=== PATIENT | female | born 1985 | race Caucasian/White ===

== ENCOUNTER 2017-02-10 21:17 | Emergency (ER) | payer OTHER ==
--- NOTE | 2017-02-10 21:47 | ED ---
General Adult HPI - General Chief complaint: Chest Pain Stated complaint: rapid heart rate/chest pain Time Seen by Provider: 02/10/17 21:39 Source: patient, family, RN notes reviewed Mode of arrival: ambulatory Limitations: no limitations - History of Present Illness Initial comments: Patient 31-year-old female who presents emergency room today with a chief complaint of increased palpitations and chest pain. She does admit that she's had these symptoms on and off for the last several months. She states chest pain is new just over the last few weeks. She states not there all the time with the palpitations. She states she was concerned as the pain has lasted the last hour and a half. She states she usually does not last that long. She describes it as sharp. States located at the anterior chest wall. She denies any other complaints. Patient denies any recent fever, chills, shortness of breath, back pain, abdominal pain, nausea or vomiting, numbness or tingling, dysuria or hematuria, constipation or diarrhea, headaches or visual changes, or any other complaints. - Related Data Home Medications Medication Instructions Recorded Confirmed LORazepam [Ativan] 1 mg PO BID PRN 07/15/14 02/10/17 Citalopram Hydrobromide [CeleXA] 20 mg PO DAILY 02/10/17 02/10/17 Levothyroxine Sodium [Synthroid] 200 mcg PO DAILY 02/10/17 02/10/17 lamoTRIgine [LaMICtal] 25 mg PO HS 02/10/17 02/10/17 Allergies Allergy/AdvReac Type Severity Reaction Status Date / Time No Known Allergies Allergy Verified 02/10/17 21:49 Review of Systems ROS Statement: Those systems with pertinent positive or pertinent negative responses have been documented in the HPI. ROS Other: All systems not noted in ROS Statement are negative. Past Medical History Past Medical History: Thyroid Disorder Additional Past Medical History / Comment(s): headaches History of Any Multi-Drug Resistant Organisms: None Reported Past Surgical History: Cholecystectomy Past Psychological History: Anxiety, Depression Smoking Status: Never smoker Past Alcohol Use History: None Reported Past Drug Use History: None Reported General Exam - General Exam Comments Initial Comments: General: The patient is awake and alert, in no distress, and does not appear acutely ill. Eye: Pupils are equal, round and reactive to light, extra-ocular movements are intact. No nystagmus. There is normal conjunctiva bilaterally. No signs of icterus. Ears, nose, mouth and throat: There are moist mucous membranes and no oral lesions. Neck: The neck is supple, there is no tenderness or JVD. Cardiovascular: There is a regular rate and rhythm. No murmur, rub or gallop is appreciated. Respiratory: Lungs are clear to auscultation, respirations are non-labored, breath sounds are equal. No wheezes, stridor, rales, or rhonchi. Gastrointestinal: Soft, non-distended, non-tender abdomen without masses or organomegaly noted. There is no rebound or guarding present. No CVA tenderness. Bowel sounds are unremarkable. Musculoskeletal: Normal ROM, no tenderness. Strength 5/5. Sensation intact. Pulses equal bilaterally 2+. Neurological: A&O x 3. CN II-XII intact, There are no obvious motor or sensory deficits. Coordination appears grossly intact. Speech is normal. Skin: Skin is warm and dry and no rashes or lesions are noted. Psychiatric: Cooperative, appropriate mood & affect, normal judgment. Limitations: no limitations Course Vital Signs 02/10/17 02/10/17 02/10/17 21:28 21:53 23:00 Temperature 98.2 F 99.1 F Pulse Rate 71 66 65 Respiratory 20 18 18 Rate Blood Pressure 167/108 149/96 153/97 O2 Sat by Pulse 99 98 100 Oximetry - Reevaluation(s) Reevaluation #1: 02/10/17 22:36 Patient reexamined at this time. She does admit to some pleuritic type pain. D -dimer mildly elevated. CT of the chest will be performed. Patient states she is currently on her menstrual cycle and no chance of . Patient's cardiac still pending. EKG shows normal sinus rhythm. EKG Findings - EKG Comments: EKG Findings:: EKG performed at 2133: A 12-lead EKG was performed and interpreted by me as showing the following: Rate is 59, and rhythm is normal sinus. There are normal QRS complexes and normal R-wave progression. ST segments have no elevation or depression, and MT segments appear normal. Medical Decision Making - Medical Decision Making Case discussed in detail with attending physician Dr. Lindsey. Patient's CT of the chest negative for any evidence of PE. Does show groundglass appearance in the left upper lobe. Patient advised follow-up family doctor. At this time patient resting comfortably. EKG is normal. Cardiac enzymes negative. Patient has been worked up for this condition through the family doctor. Advised to follow-up family doctor tomorrow. Advised return if any symptoms increase or worsen. - Lab Data Result diagrams: 02/10/17 21:50 02/10/17 21:50 Lab Results 02/10/17 02/10/17 02/10/17 Range/Units 21:50 21:50 21:50 WBC 6.9 (3.8-10.6) k/uL RBC 4.76 (3.80-5.40) m/uL Hgb 15.3 (11.4-16.0) gm/dL Hct 42.9 (34.0-46.0) % MCV 90.1 (80.0-100.0) fL MCH 32.2 (25.0-35.0) pg MCHC 35.8 (31.0-37.0) g/dL RDW 12.5 (11.5-15.5) % Plt Count 197 (150-450) k/uL Neutrophils % 52 % Lymphocytes % 39 % Monocytes % 5 % Eosinophils % 1 % Basophils % 1 % Neutrophils # 3.6 (1.3-7.7) k/uL Lymphocytes # 2.7 (1.0-4.8) k/uL Monocytes # 0.3 (0-1.0) k/uL Eosinophils # 0.1 (0-0.7) k/uL Basophils # 0.1 (0-0.2) k/uL PT (9.0-12.0) sec INR (<1.1) APTT (22.0-30.0) sec D-Dimer (<0.60) mg/L FEU Sodium 140 (137-145) mmol/L Potassium 4.1 (3.5-5.1) mmol/L Chloride 104 (98-107) mmol/L Carbon Dioxide 30 (22-30) mmol/L Anion Gap 6 mmol/L BUN 13 (7-17) mg/dL Creatinine 0.72 (0.52-1.04) mg/dL Est GFR (MDRD) Af Amer >60 (>60 ml/min/1.73 sqM) Est GFR (MDRD) Non-Af >60 (>60 ml/min/1.73 sqM) Glucose 88 (74-99) mg/dL Calcium 9.6 (8.4-10.2) mg/dL Magnesium 2.0 (1.6-2.3) mg/dL Total Bilirubin 0.4 (0.2-1.3) mg/dL AST 24 (14-36) U/L ALT 27 (9-52) U/L Alkaline Phosphatase 53 (38-126) U/L Total Creatine Kinase 121 (30-135) U/L CK-MB (CK-2) 0.7 (0.0-2.4) ng/mL CK-MB (CK-2) Rel Index 0.6 Troponin I <0.012 (0.000-0.034) ng/mL Total Protein 7.5 (6.3-8.2) g/dL Albumin 4.3 (3.5-5.0) g/dL 02/10/17 Range/Units 21:50 WBC (3.8-10.6) k/uL RBC (3.80-5.40) m/uL Hgb (11.4-16.0) gm/dL Hct (34.0-46.0) % MCV (80.0-100.0) fL MCH (25.0-35.0) pg MCHC (31.0-37.0) g/dL RDW (11.5-15.5) % Plt Count (150-450) k/uL Neutrophils % % Lymphocytes % % Monocytes % % Eosinophils % % Basophils % % Neutrophils # (1.3-7.7) k/uL Lymphocytes # (1.0-4.8) k/uL Monocytes # (0-1.0) k/uL Eosinophils # (0-0.7) k/uL Basophils # (0-0.2) k/uL PT 9.6 (9.0-12.0) sec INR 0.9 (<1.1) APTT 22.6 (22.0-30.0) sec D-Dimer 0.65 H (<0.60) mg/L FEU Sodium (137-145) mmol/L Potassium (3.5-5.1) mmol/L Chloride (98-107) mmol/L Carbon Dioxide (22-30) mmol/L Anion Gap mmol/L BUN (7-17) mg/dL Creatinine (0.52-1.04) mg/dL Est GFR (MDRD) Af Amer (>60 ml/min/1.73 sqM) Est GFR (MDRD) Non-Af (>60 ml/min/1.73 sqM) Glucose (74-99) mg/dL Calcium (8.4-10.2) mg/dL Magnesium (1.6-2.3) mg/dL Total Bilirubin (0.2-1.3) mg/dL AST (14-36) U/L ALT (9-52) U/L Alkaline Phosphatase (38-126) U/L Total Creatine Kinase (30-135) U/L CK-MB (CK-2) (0.0-2.4) ng/mL CK-MB (CK-2) Rel Index Troponin I (0.000-0.034) ng/mL Total Protein (6.3-8.2) g/dL Albumin (3.5-5.0) g/dL Disposition Clinical Impression: Palpitation Disposition: HOME SELF-CARE Condition: Good Instructions: Palpitations (ED) Additional Instructions: Please use medication as discussed. Please follow-up with family doctor in the next 1-2 days. Please return to emergency room if the symptoms increase or worsen or for any other concerns. Time of Disposition: 23:47
[2017-02-10 21:53] VITALS: RESP 18
[2017-02-10 22:00] LABS: Basophils # (A) 0.1 k/uL (0-0.2); Basophils % (A) 1 %; CH 32.9; CHCM 36.6; Eosinophils # (A) 0.1 k/uL (0-0.7); Eosinophils % (A) 1 %; HCT 42.9 % (34.0-46.0); HDW 2.76; HGB 15.3 gm/dL (11.4-16.0); Luc # (Auto) 0.19; Luc % (Auto) 3; Lymphocytes # (A) 2.7 k/uL (1.0-4.8); Lymphocytes % (A) 39 %; MCH 32.2 pg (25.0-35.0); MCHC 35.8 g/dL (31.0-37.0); MCV 90.1 fL (80.0-100.0); Mean Platelet Volume 6.3; Monocytes # (A) 0.3 k/uL (0-1.0); Monocytes % (A) 5 %; Neutrophils # (A) 3.6 k/uL (1.3-7.7); Neutrophils % (A) 52 %; RBC 4.76 m/uL (3.80-5.40); RDW 12.5 % (11.5-15.5); WBC 6.9 k/uL (3.8-10.6); WBC (Perox) 7.22
[2017-02-10 22:08] LABS: ALT 27 U/L (9-52); AST 24 U/L (14-36); Alkaline Phosphatase 53 U/L (38-126); Anion Gap 6 mmol/L; Blood Urea Nitrogen 13 mg/dL (7-17); Calcium 9.6 mg/dL (8.4-10.2); Carbon Dioxide 30 mmol/L (22-30); Chloride 104 mmol/L (98-107); Glucose 88 mg/dL (74-99); Non-African American GFR(MDRD) >60 (>60 ml/min/1.73 sqM); Potassium 4.1 mmol/L (3.5-5.1); Sodium 140 mmol/L (137-145); Total Bilirubin 0.4 mg/dL (0.2-1.3); Total Protein 7.5 g/dL (6.3-8.2)
[2017-02-10 22:09] LABS: INR 0.9 (<1.1); Partial Thromboplastin Time 22.6 sec (22.0-30.0); Prothrombin Time 9.6 sec (9.0-12.0)
[2017-02-10 22:22] LABS: Creatine Kinase 121 U/L (30-135)
--- NOTE | 2017-02-10 22:25 | XR ---
EXAM: XR Chest, 2 Views CLINICAL HISTORY: Reason: Chest Pain TECHNIQUE: Frontal and lateral views of the chest. COMPARISON: No relevant prior studies available. FINDINGS: Lungs: Mildly prominent perihilar lung markings. No consolidation. Pleural space: Unremarkable. No pneumothorax. Heart: Unremarkable. Mediastinum: Unremarkable. Bones/joints: Unremarkable. IMPRESSION: Mildly prominent perihilar lung markings. No consolidation.
[2017-02-10] MEDS ORDERED: RX INFO: IV CONTRAST WAS GIVEN 1 EACH MISC MISCELLANE PRN (22:29)
[2017-02-10 22:35] LABS: Creatine Kinase MB 0.7 ng/mL (0.0-2.4); Troponin I <0.012 ng/mL (0.000-0.034)
--- NOTE | 2017-02-10 23:29 | CT ---
EXAM: CT Angiography Chest With Intravenous Contrast CLINICAL HISTORY: Reason: pain TECHNIQUE: Axial computed tomographic angiography images of the chest with intravenous contrast using pulmonary embolism protocol. CTDI is 3.0, 28. 6, and 7.1 mGy and DLP is 275.7 mGy-cm This CT exam was performed using one or more of the following dose reduction techniques: automated exposure control, adjustment of the mA and/or kV according to patient size, and/or use of iterative reconstruction technique. MIP reconstructed images were created and reviewed. COMPARISON: No relevant prior studies available. FINDINGS: Pulmonary arteries: No evidence of PE. Peripheral vessels not well visualized. Aorta: No aortic aneurysm or dissection. Lungs: Mild peribronchial thickening. No consolidation. Small 3 mm groundglass pulmonary nodule in the left upper lobe (image [id number]). Pleural space: Unremarkable. No significant effusion. No pneumothorax. Heart: Unremarkable. Bones/joints: No acute fracture. Soft tissues: Unremarkable. Lymph nodes: Small mediastinal and hilar lymph nodes. Gallbladder and bile ducts: Prior cholecystectomy. IMPRESSION: 1. No evidence of PE. 2. Mild peribronchial thickening. No consolidation. Small 3 mm groundglass nodule in the left upper lobe. Compare to prior studies if available, followup per Fleischner society recommendations if indicated.
[2017-02-10] MEDS ORDERED: KETOROLAC 30 MG/ML 1 ML VIAL IVP STA (23:37)
[2017-02-10 23:47] VITALS: BP 138/93; PULSE 68; TEMP 98.6
== END 2017-02-10 23:53 | disposition home or self-care (01) ==
LOC: EC 21:17
DX: R00.2 Palpitations (principal); R07.89 Other chest pain; R91.8 Other nonspecific abnormal finding of lung field; E07.9 Disorder of thyroid, unspecified; F32.9 Major depressive disorder, single episode, unspecified; Z79.899 Other long term (current) drug therapy
CPT/HCPCS: 36415; 93005; 85379; 80053; 82550; 82553; 83735; 84484; 85025; 85610; 85730; 71020; 71275; 99285; 96374; Q9967; J1885

== ENCOUNTER 2018-01-28 05:48 | Inpatient (IN) | payer OTHER ==
[2018-01-28] MEDS ORDERED: LIDOCAINE 1% (PF) 10 MG/ML (30 ML SDV) SQ PRN (06:19)
[2018-01-28] MEDS ORDERED: METHYLERGONOVINE 0.2 MG/ML 1 ML AMP IM PRN (06:19)
[2018-01-28] MEDS ORDERED: OXYTOCIN 10 UNIT/ML 1 ML VIAL IM PRN (06:19)
[2018-01-28] MEDS ORDERED: TERBUTALINE 1 MG/ML VIAL SQ PRN (06:19)
[2018-01-28] MEDS ORDERED: CARBOPROST TROMETHAMINE 250 MCG/ML 1 ML AMP IM PRN (06:19)
[2018-01-28 06:27] LABS: Basophils % (A) 0 %; Eosinophils # (A) 0.1 k/uL (0-0.7); Eosinophils % (A) 1 %; HCT 38.5 % (34.0-46.0); HGB 14.5 gm/dL (11.4-16.0); Hyperchromasia Marked; Lymphocytes # (A) 1.9 k/uL (1.0-4.8); Lymphocytes % (A) 27 %; MCH 32.4 pg (25.0-35.0); MCHC 37.7 g/dL (31.0-37.0); MCV 85.8 fL (80.0-100.0); Mean Platelet Volume 7.5; Monocytes # (A) 0.3 k/uL (0-1.0); Monocytes % (A) 4 %; Neutrophils # (A) 4.7 k/uL (1.3-7.7); Neutrophils % (A) 65 %; Platelet Count 171 k/uL (150-450); Poikilocytosis Slight; RBC 4.49 m/uL (3.80-5.40); RDW 13.9 % (11.5-15.5); WBC 7.2 k/uL (3.8-10.6)
[2018-01-28 06:28] VITALS: BMI 33.3
[2018-01-28 06:38] LABS: ALT 20 U/L (9-52); AST 19 U/L (14-36); Blood Urea Nitrogen 6 mg/dL (7-17); LDH 535 U/L (313-618); Uric Acid 5.4 mg/dL (3.7-7.4)
[2018-01-28] MEDS: LACTATED RINGERS 1,000 ML IV SCH ×3 (06:38→07:25)
[2018-01-28] MEDS ORDERED: SODIUM CHLORIDE 0.9% 100 ML BAG ONE (06:52)
[2018-01-28] MEDS ORDERED: fentaNYL (PF) 50 MCG/ML 5 ML AMP ONE (06:52)
[2018-01-28] MEDS ORDERED: BUPIVACAINE (PF) 0.25% 30 ML VIAL ONE (06:52)
--- NOTE | 2018-01-28 06:53 | P.HPOB ---
History of Present Illness H&P Date: 01/28/18 Chief Complaint: Labor at 40-0/7 weeks This is a 32-year-old 6 para 3023 woman with an estimated due date of based on LMP consistent with second trimester ultrasound who presents at 40-0/7 weeks gestation in spontaneous active labor. She reports onset of regular painful contractions at approximately 4:15 AM. She denies vaginal bleeding or leakage of fluids. She is known Rh-. Past medical history is significant for hypothyroid, hypertension and anxiety bipolar disorder. Upon initial presentation to labor and delivery triage she is actively zain every 3 minutes and is visibly uncomfortable. Her cervix is 4+ centimeters dilated 50% effaced and posterior. heart tones are reassuring. She did have elevated blood pressures upon presentation but denied headaches, visual changes. Obstetric history: Normal spontaneous vaginal deliveries in 2010, 2008 and 2006. Spontaneous miscarriages in 2015 2009. No previous history of PIH or preeclampsia. Laboratory data: Group B strep negative, blood type AB-, antibody screen negative, rubella immune, VDRL nonreactive, hepatitis B surface antigen negative , HIV negative, gonorrhea and chlamydia cultures negative. Review of Systems All systems: negative Past Medical History Past Medical History: Hypertension, Thyroid Disorder Additional Past Medical History / Comment(s): headaches History of Any Multi-Drug Resistant Organisms: None Reported Past Surgical History: Cholecystectomy Past Anesthesia/Blood Transfusion Reactions: No Reported Reaction Past Psychological History: Anxiety, Bipolar, Depression Smoking Status: Never smoker Past Alcohol Use History: None Reported Past Drug Use History: None Reported - Past Family History Father History Unknown: Yes Family Medical History: Hypertension Medications and Allergies Home Medications Medication Instructions Recorded Confirmed Type Citalopram Hydrobromide [CeleXA] 40 mg PO DAILY 02/10/17 01/28/18 History Levothyroxine Sodium [Synthroid] 200 mcg PO DAILY 02/10/17 01/28/18 History lamoTRIgine [LaMICtal] 25 mg PO HS 02/10/17 01/28/18 History Allergies Allergy/AdvReac Type Severity Reaction Status Date / Time No Known Allergies Allergy Verified 01/28/18 06:17 Exam - Vital Signs Vital signs: Vital Signs Temp Pulse Resp BP 01/28/18 06:22 97.6 F 101 H 16 143/95 Intake and Output 01/27/18 01/27/1801/28/18 14:59 22:59 06:59 Other: Weight 99.337 kg Targeted physical exam is performed. This is an extremely uncomfortable and actively laboring female. On cervical exam she is 6 cm dilated, 50% effaced and the vertex is in the -3 station. Bulging membranes are palpable. Patient does not tolerate pelvic exam well. She is very active in the bed precluding other examination. heart tones are reassuring by external monitoring. She is zain every 2-4 minutes. Results Result Diagrams: 01/28/18 06:18 01/28/18 06:18 Abnormal Lab Results - Last 24 Hours (Table) 01/28/18 01/28/18 Range/Units 06:18 06:18 MCHC 37.7 H (31.0-37.0) g/dL BUN 6 L (7-17) mg/dL Assessment and Plan (1) 40 weeks gestation of Current Visit: Yes Status: Acute Code(s): Z3A.40 - 40 WEEKS GESTATION OF SNOMED Code(s): 87244453 (2) Spontaneous onset of labor Narrative/Plan: This is a 32-year-old 6 para 3 woman in advanced active labor. Epidural anesthetic is pending. Elevated blood pressures as described. Anticipate normal spontaneous vaginal delivery. Current Visit: Yes Status: Acute Code(s): ERI6431 - SNOMED Code(s): 95568542 (3) Rh negative, maternal Current Visit: Yes Status: Acute Code(s): O09.899 - SUPERVISION OF OTHER HIGH RISK PREGNANCIES, UNSP TRIMESTER; Z67.91 - UNSPECIFIED BLOOD TYPE, RH NEGATIVE SNOMED Code(s): 943486523 (4) Hypertension affecting Narrative/Plan: History of hypertension prior to . Preeclamptic labs negative. Blood pressure currently elevated however epidural anesthetic is pending. He did not want to give her an antihypertensive immediately prior to epidural placement for fear of significant hypotension. She will be treated with IV labetalol following her epidural if her pressures remain elevated. Current Visit: Yes Status: Acute Code(s): O16.9 - UNSPECIFIED MATERNAL HYPERTENSION, UNSPECIFIED TRIMESTER SNOMED Code(s): 915342779 (5) Hypothyroid Current Visit: Yes Status: Acute Code(s): E03.9 - HYPOTHYROIDISM, UNSPECIFIED SNOMED Code(s): 01295553 (6) Bipolar disorder Current Visit: Yes Status: Acute Code(s): F31.9 - BIPOLAR DISORDER, UNSPECIFIED SNOMED Code(s): 76308234
[2018-01-28] MEDS ORDERED: BUPIVACAINE (PF) 0.25% 25 ML, fentaNYL (PF) 200 MCG in SODIUM CHLORIDE 0.9% 71 ML EPIDURAL ONE (07:18)
[2018-01-28 08:55] LABS: Appearance,Urine Cloudy (Clear); Bilirubin,Urine Negative (Negative); Blood,Urine Negative (Negative); Color,Urine Yellow; Glucose,Urine (UA) Negative (Negative); Hyaline Casts,Urine 3 /lpf (0-2); Ketones,Urine Trace (Negative); Leukocyte Esterase,Urine Negative (Negative); Mucus,Urine Occasional /hpf; Nitrite,Urine Negative (Negative); Protein,Urine 1+ (Negative); RBC,Urine <1 /hpf (0-5); Specific Gravity,Urine 1.012 (1.001-1.035); Squamous Epithelial Cell,Urine <1 /hpf (0-4); WBC,Urine 2 /hpf (0-5)
[2018-01-28] MEDS ORDERED: BENZOCAINE/MENTHOL SPRAY 1 GM/SPRAY AEROSOL TOPICAL PRN (09:47)
[2018-01-28] MEDS ORDERED: diphenhydrAMINE 25 MG CAP PO PRN (09:47)
[2018-01-28] MEDS ORDERED: ZOLPIDEM 5 MG TAB PO PRN (09:47)
[2018-01-28] MEDS ORDERED: LANOLIN CREAM 5 GM TUBE TOPICAL PRN (09:47)
[2018-01-28] MEDS ORDERED: ACETAMINOPHEN TAB 325 MG TAB PO PRN (09:47)
[2018-01-28] MEDS ORDERED: diphenhydrAMINE 50 MG CAP PO PRN (09:47)
[2018-01-28] MEDS ORDERED: SIMETHICONE 80 MG CHEWABLE PO PRN (09:47)
[2018-01-28] MEDS ORDERED: WITCH HAZEL 1 EACH MED..PAD TOPICAL PRN (09:47)
[2018-01-28] MEDS ORDERED: HYDROCORTISONE 2.5% RECTAL CREAM 30 GM TUBE RECTAL PRN (09:47)
[2018-01-28] MEDS ORDERED: diphenhydrAMINE 50 MG/ML 1 ML VIAL IVP PRN ×2 (09:47)
--- NOTE | 2018-01-28 09:47 | P.PROBDLV ---
Vaginal Delivery Note - . Vaginal Delivery Note: Findings: Male infant in the vertex left occiput anterior position with Apgars of 7 at 1 minute and 9 at 5 minutes weighing 8 lbs. 14 oz., 4035 g. Meconium- stained fluid. Intact, three-vessel cord placenta with meconium staining. EBL 100 mL's. No perineal lacerations. Delivery summary: This is a 32-year-old 6 para 3 woman who presented at 40-0/7 weeks gestation in spontaneous active labor. Following admission she did receive an epidural anesthetic. She underwent artificial rupture of membranes at which time thick meconium-stained fluid was noted. She did have reassuring heart tones strep first stage of labor. She had an approximately 5 hour first stage of labor to reach complete cervical dilation. She had strong urge to push and commenced pushing from the -1 station. She she was repositioned prepped and draped in the modified Dale position. With additional maternal effort the head crowned from the left occiput anterior position. Once the head was delivered the nose and mouth were bulb suctioned. The anterior shoulder was delivered in full Dale position the rest the was delivered onto the field. The nose and mouth were further bulb suctioned and the cord was clamped and cut. The infant was taken to the warmer for further evaluation. An intact, three-vessel cord placenta was delivered after a 6 minute third stage of labor. She had an approximately 4 minute second stage of labor. Following delivery of the placenta the perineum, vagina and cervix were inspected and no lacerations were noted. The uterus was massaged and was noted to be firm at the level of the umbilicus. EBL was approximately 100 mL's. All counts were correct. Mother and were doing well post delivery in the room.
[2018-01-28] MEDS ORDERED: OXYTOCIN 20 UNITS/1000 ML NS 1,000 ML IV SCH (10:00)
[2018-01-28] MEDS: IBUPROFEN 600 MG TAB PO PRN ×2 (10:06→20:51)
[2018-01-28] MEDS ORDERED: Rhogam IMMUNE GLOBULIN 1,500 UNIT/1 ML IM ONE (20:49)
[2018-01-28] MEDS: SENNOSIDES-DOCUSATE SODIUM 1 EACH TAB PO SCH (20:51)
[2018-01-28] MEDS ORDERED: lamoTRIgine 25 MG TAB PO SCH (21:00)
[2018-01-28] MEDS ORDERED: CITALOPRAM HYDROBROMIDE 20 MG TAB PO SCH (21:00)
[2018-01-29] MEDS ORDERED: SYNTHROID 200 MCG PO SCH (06:30)
[2018-01-29] MEDS: SENNOSIDES-DOCUSATE SODIUM 1 EACH TAB PO SCH (08:09)
[2018-01-29 08:14] VITALS: BP 132/71; PULSE 76; RESP 16; TEMP 98.8
[2018-01-29] MEDS ORDERED: CITALOPRAM HYDROBROMIDE 20 MG TAB PO SCH (09:00)
--- NOTE | 2018-01-29 09:47 | P.PNOBGVD ---
Subjective - Subjective Principal diagnosis: Normal spontaneous vaginal delivery Patient reports: Reports appetite normal, Reports voiding normally, Reports pain well controlled, Reports ambulating normally [place]: doing well, other (Male infant has not spontaneously voided therefore circumcision has not yet been done.) Objective - Latest Vital Signs Latest vital signs: Vital Signs Temp Pulse Resp BP 01/29/18 08:12 98.8 F 76 16 132/71 01/29/18 05:56 98.1 F 145 H 40 H 01/29/18 00:00 81 18 01/28/18 21:56 98.1 F 81 18 138/78 01/28/18 16:00 98.2 F 73 16 138/82 01/28/18 11:45 96.9 F L 100 16 142/83 01/28/18 11:15 98.2 F 75 18 136/79 01/28/18 10:45 98.5 F 93 18 138/88 01/28/18 10:30 90 133/79 01/28/18 10:15 83 125/78 01/28/18 10:00 99.2 F 91 18 136/78 Intake and Output 01/28/18 01/29/18 01/29/18 22:59 06:59 14:59 Intake Total 1300 Balance 1300 Intake: Oral 1300 Other: # Voids 2 1 - Exam Extremities: Present: edema Abdomen: Present: normal appearance, soft Uterus: Present: normal, firm Assessment and Plan (1) 40 weeks gestation of Current Visit: Yes Status: Acute Code(s): Z3A.40 - 40 WEEKS GESTATION OF SNOMED Code(s): 60810399 (2) Spontaneous onset of labor Current Visit: Yes Status: Acute Code(s): AFD7969 - SNOMED Code(s): 71250110 (3) Rh negative, maternal Current Visit: Yes Status: Acute Code(s): O09.899 - SUPERVISION OF OTHER HIGH RISK PREGNANCIES, UNSP TRIMESTER; Z67.91 - UNSPECIFIED BLOOD TYPE, RH NEGATIVE SNOMED Code(s): 866998030 (4) Hypertension affecting Current Visit: Yes Status: Acute Code(s): O16.9 - UNSPECIFIED MATERNAL HYPERTENSION, UNSPECIFIED TRIMESTER SNOMED Code(s): 441051775 (5) Hypothyroid Current Visit: Yes Status: Acute Code(s): E03.9 - HYPOTHYROIDISM, UNSPECIFIED SNOMED Code(s): 34949615 (6) Bipolar disorder Current Visit: Yes Status: Acute Code(s): F31.9 - BIPOLAR DISORDER, UNSPECIFIED SNOMED Code(s): 44195281 (7) Normal spontaneous vaginal delivery Current Visit: Yes Status: Acute Code(s): O80 - ENCOUNTER FOR FULL-TERM UNCOMPLICATED DELIVERY SNOMED Code(s): 76430023 Plan: day 1 status post normal spontaneous vaginal delivery. Her blood pressures have all remained in the 130s over 70s. She is recovering well. She will likely be discharged home tomorrow pending completion of circumcision of her baby who is not yet spontaneously voided.
[2018-01-29] MEDS: IBUPROFEN 600 MG TAB PO PRN (13:34)
== END 2018-01-29 15:30 | disposition home or self-care (01) | DRG 774 ==
LOC: FBPOP 05:48 → 4FBP 06:05
PROVIDERS: ADMIT Obstetrics & Gynecology; ATTEND Obstetrics & Gynecology
PROC: 10907ZC Drainage of Amniotic Fluid, Therapeutic from Products of Conception, Via Natural or Artificial Opening (ICD-10-PCS; principal; 2018-01-28)
PROC: 3E0R3NZ Introduction of Analgesics, Hypnotics, Sedatives into Spinal Canal, Percutaneous Approach (ICD-10-PCS; principal; 2018-01-28)
PROC: 00HU33Z Insertion of Infusion Device into Spinal Canal, Percutaneous Approach (ICD-10-PCS; principal; 2018-01-28)
PROC: 10E0XZZ Delivery of Products of Conception, External Approach (ICD-10-PCS; principal; 2018-01-28)
DX: O48.0 Post-term pregnancy (principal); O16.3 Unspecified maternal hypertension, third trimester; O36.0930 Maternal care for other rhesus isoimmunization, third trimester, not applicable or unspecified; Z37.0 Single live birth; Z3A.40 40 weeks gestation of pregnancy; O99.284 Endocrine, nutritional and metabolic diseases complicating childbirth; E03.9 Hypothyroidism, unspecified; F31.9 Bipolar disorder, unspecified; F41.9 Anxiety disorder, unspecified; O99.344 Other mental disorders complicating childbirth; Z79.899 Other long term (current) drug therapy; Z79.890 Hormone replacement therapy; O77.0 Labor and delivery complicated by meconium in amniotic fluid; Z82.49 Family history of ischemic heart disease and other diseases of the circulatory system
CPT/HCPCS: 81001; 82565; 83615; 84450; 84460; 84520; 84550; 85025; 85461; 88307

== ENCOUNTER → 2020-08-29 | Outpatient (CLI) | payer MEDICAID, OTHER ==
--- NOTE | 2020-08-30 02:07 | MR ---
EXAMINATION TYPE: MR shoulder RT wo con DATE OF EXAM: 08/29/2020 COMPARISON: None HISTORY: Chronic rt shoulder pain. Multiplanar multiecho imaging of the right shoulder was performed without contrast. The glenoid edy appear intact. There are some degenerative cysts in the greater tuberosity of the h umerus. Subscapularis tendon is intact. Biceps tendon is intact. There is small amount of fluid aroun d the biceps tendon. There is some thickening and increased signal in the supraspinatus tendon withou t retraction. There is mild spurring at the AC joint. There is no significant subacromial impingement . There is no evidence of a fracture. I see no bony destructive process. IMPRESSION: Thickening and increased signal in the supraspinatus tendon consistent with a partial tear. No defini te full-thickness tear. Small degenerative cysts in the greater tuberosity of the humerus. Hypertroph ic mild spurring at the AC joint.
--- NOTE | 2020-08-30 02:10 | MR ---
EXAMINATION TYPE: MR ankle RT wo con DATE OF EXAM: 08/29/2020 COMPARISON: None HISTORY: Acute right ankle pain Body planar multiecho imaging of the right ankle was performed without contrast. The collateral ligaments are intact. Ankle mortise is anatomic. The Achilles tendon is intact. The me dial and lateral flexor tendons of the ankle appear intact. There is mild ankle joint effusion. There is also some fluid around the flexor tendons of the ankle. There is no evidence of a fracture. I see no bony destructive process. The joint spaces are fairly normal. The plantar fascia appears intact. There is no evidence of a soft tissue mass. IMPRESSION: Ankle joint effusion with peritendinous fluid. Subcutaneous edema around the ankle and lower leg. Vanessa nt fluid consistent with synovitis. No fracture seen. No evidence of ligament or tendon tear.
== END | disposition home or self-care (01) ==
LOC: RADMRIMAIN 20:17
PROVIDERS: ATTEND Pediatrics
DX: M67.813 Other specified disorders of tendon, right shoulder (principal); M25.711 Osteophyte, right shoulder; R93.7 Abnormal findings on diagnostic imaging of other parts of musculoskeletal system; M25.471 Effusion, right ankle; R60.0 Localized edema; M67.873 Other specified disorders of tendon, right ankle and foot

== ENCOUNTER → 2021-01-27 | Outpatient (CLI) | payer MEDICAID, OTHER | END | disposition home or self-care (01) | LOC: LABWHC1 07:28 | PROVIDERS: ATTEND Pediatrics | DX: Z20.822 Contact with and (suspected) exposure to COVID-19 (principal) | CPT/HCPCS: 86769; 36415; C9803 ==

== ENCOUNTER → 2021-05-09 | Outpatient (CLI) | payer MEDICAID, OTHER ==
[2021-05-09 12:41] LABS: African American GFR (CKD) 96.7 (60.0-200.0); Albumin 4.3 g/dL (3.80-4.90); Albumin/Globulin Ratio 1.87 (1.60-3.17); Anion Gap 7.3 mmol/L (4.00-12.00); BUN/Creat Ratio 13.33 Ratio (12.00-20.00); Calcium 9.1 mg/dL (8.7-10.3); Carbon Dioxide 26.7 mmol/L (21.6-31.8); Globulin 2.3 g/dL (1.6-3.3); Non-African American GFR(CKD) 83.4 (60.0-200.0); Potassium 4.6 mmol/L (3.5-5.5); Total Bilirubin 0.8 mg/dL (0.3-1.2); Total Protein 6.6 g/dL (6.2-8.2)
[2021-05-09 12:47] LABS: Basophils # (A) 0.04 X 10*3/uL (0.00-0.10); Basophils % (A) 0.7 %; Eosinophils # (A) 0.18 X 10*3/uL (0.04-0.35); Eosinophils % (A) 3.1 %; HCT 40.7 % (37.2-46.3); Lymphocytes % (A) 36.3 %; MCHC 36.9 g/dL (32.0-37.0); MCV 86.8 fL (80.0-97.0); Mean Platelet Volume 9.1 fL (9.5-12.2); Monocytes # (A) 0.51 X 10*3/uL (0.20-1.00); Monocytes % (A) 8.8 %; Neutrophils # (A) 2.95 X 10*3/uL (1.80-7.70); Neutrophils % (A) 50.9 %; Platelet Count 165 X 10*3/uL (140-440); RBC 4.69 X 10*6/uL (4.10-5.20); RDW 11.7 % (11.5-14.5); WBC 5.79 X 10*3/uL (4.50-10.00)
[2021-05-09 14:33] LABS: Estradiol 201.5 pg/mL
[2021-05-09 16:19] LABS: Thyroid Peroxidase Antibodies 4822.1 U/mL (0.0-60.0)
[2021-05-09 17:15] LABS: Prolactin 7.6 ng/mL (2.8-29.2)
[2021-05-09 17:16] LABS: Follicle Stimulating Hormone 1.7 mIU/mL; Luteinizing Hormone 3.9 mIU/mL; T4, Free (Free Thyroxine) 1.5 ng/dL (0.80-1.80)
== END | disposition home or self-care (01) ==
LOC: LABWHC1 08:43
PROVIDERS: ATTEND Internal Medicine Endocrinology, Diabetes & Metabolism
DX: E03.9 Hypothyroidism, unspecified (principal); R61 Generalized hyperhidrosis; I10 Essential (primary) hypertension; R53.83 Other fatigue
CPT/HCPCS: 36415; 80053; 82024; 82306; 82533; 82607; 82670; 83001; 83002; 84146; 84439; 84443; 85025; 86376; 86800

== ENCOUNTER → 2021-07-06 | Outpatient (CLI) | payer MEDICAID, OTHER ==
[2021-07-06 10:25] LABS: HCT 43.5 % (37.2-46.3); HGB 15.7 g/dL (12.0-15.0); MCH 32.5 pg (27.0-32.0); MCHC 36.1 g/dL (32.0-37.0); MCV 90.1 fL (80.0-97.0); Platelet Count 198 X 10*3/uL (140-440); RBC 4.83 X 10*6/uL (4.10-5.20); WBC 8.17 X 10*3/uL (4.50-10.00)
[2021-07-06 13:11] LABS: African American GFR (CKD) 111.5 (60.0-200.0); Albumin 4.5 g/dL (3.80-4.90); Albumin/Globulin Ratio 1.88 (1.60-3.17); BUN/Creat Ratio 13.75 Ratio (12.00-20.00); Calcium 9.6 mg/dL (8.7-10.3); Globulin 2.4 g/dL (1.6-3.3); Non-African American GFR(CKD) 96.2 (60.0-200.0); Potassium 3.8 mmol/L (3.5-5.5); Total Bilirubin 0.5 mg/dL (0.2-1.2); Total Protein 6.9 g/dL (6.2-8.2)
[2021-07-06 13:22] LABS: Prolactin 6.6 ng/mL (2.8-29.2); T4, Free (Free Thyroxine) 1.2 ng/dL (0.80-1.80)
== END | disposition home or self-care (01) ==
LOC: LABWHC1 07:04
PROVIDERS: ATTEND Internal Medicine Endocrinology, Diabetes & Metabolism
DX: R53.83 Other fatigue (principal)
CPT/HCPCS: 36415; 80053; 82024; 82306; 82533; 82607; 84146; 84439; 84443; 85027

== ENCOUNTER → 2021-10-31 | Outpatient (CLI) | payer MEDICAID, OTHER ==
[2021-10-31 12:41] LABS: ALT 24 U/L (8-44); AST 17 U/L (13-35); Albumin 4.5 g/dL (3.8-4.9); Albumin/Globulin Ratio 2.05 (1.60-3.17); Alkaline Phosphatase 86 U/L (41-126); BUN/Creat Ratio 16.57 Ratio (12.00-20.00); Blood Urea Nitrogen 11.6 mg/dL (9.0-27.0); Calcium 9.5 mg/dL (8.7-10.3); Carbon Dioxide 19.4 mmol/L (20.0-27.5); Chloride 103 mmol/L (96-109); Chol/HDL Ratio 3.43 Ratio; Globulin 2.2 g/dL (1.6-3.3); Glucose 81 mg/dL (70-110); LDL Cholesterol,Calculated 117.6 mg/dL (0.0-131.0); Potassium 3.8 mmol/L (3.5-5.5); Sodium 141 mmol/L (135-145); Total Protein 6.7 g/dL (6.2-8.2); VLDL Calculation 19.08 mg/dL (5.00-40.00)
[2021-10-31 13:40] LABS: Basophils # (A) 0.04 X 10*3/uL (0.00-0.10); Basophils % (A) 0.6 %; HCT 42.9 % (37.2-46.3); HGB 15.4 g/dL (12.0-15.0); Lymphocytes # (A) 2.07 X 10*3/uL (0.90-5.00); Lymphocytes % (A) 31.5 %; MCH 31.6 pg (27.0-32.0); MCHC 35.9 g/dL (32.0-37.0); MCV 87.9 fL (80.0-97.0); Mean Platelet Volume 9.4 fL (9.5-12.2); Monocytes # (A) 0.42 X 10*3/uL (0.20-1.00); Monocytes % (A) 6.4 %; Neutrophils # (A) 3.82 X 10*3/uL (1.80-7.70); Neutrophils % (A) 58.2 %; Platelet Count 175 X 10*3/uL (140-440); RBC 4.88 X 10*6/uL (4.10-5.20); RDW 11.4 % (11.5-14.5); WBC 6.57 X 10*3/uL (4.50-10.00)
== END | disposition home or self-care (01) ==
LOC: LABWHC1 08:09
PROVIDERS: ATTEND Pediatrics
DX: Z00.00 Encounter for general adult medical examination without abnormal findings (principal); E03.9 Hypothyroidism, unspecified; E55.9 Vitamin D deficiency, unspecified; Z13.220 Encounter for screening for lipoid disorders
CPT/HCPCS: 36415; 80053; 80061; 82306; 84443; 85025

== ENCOUNTER 2021-12-03 11:18 | Emergency (ER) | payer MEDICAID, OTHER ==
[2021-12-03 12:26] VITALS: RESP 16
[2021-12-03] MEDS ORDERED: KETOROLAC 15 MG/ML 1 ML VIAL IM STA (12:34)
--- NOTE | 2021-12-03 13:04 | ED ---
Lower Extremity Injury HPI - General Chief Complaint: Extremity Injury, Lower Stated Complaint: Fall/ankle injury Time Seen by Provider: 12/03/21 12:30 Source: patient Mode of arrival: wheelchair Limitations: no limitations - History of Present Illness Initial Comments: 36-year-old female patient presents to the emergency department today for evaluation of right ankle pain after slip and fall on the ice. Patient states that when she slipped she felt a snap in her ankle. States she is unable to bear weight. States the pain is located on the lateral aspect. Denies numbness or tingling to the foot. She denies any knee pain. Denies hitting her head or losing consciousness. Denies any neck or back pain. Denies taking any medication for her symptoms. Denies any chance of . Denies any other injuries. - Related Data Home Medications Medication Instructions Recorded Confirmed Cetirizine HCl [Zyrtec] 10 mg PO DAILY 12/03/21 12/03/21 Ergocalciferol [Vitamin D2 (1250 1,250 mcg PO Q30D 12/03/21 12/03/21 Mcg = 08041 Iu)] Escitalopram [Lexapro] 20 mg PO DAILY 12/03/21 12/03/21 LORazepam [Ativan] 1 mg PO BID PRN 12/03/21 12/03/21 Levothyroxine Sodium [Synthroid] 150 mcg PO DAILY 12/03/21 12/03/21 Losartan [Cozaar] 50 mg PO DAILY 12/03/21 12/03/21 Lurasidone HCl [Latuda] 60 mg PO DAILY 12/03/21 12/03/21 Phentermine HCl [Adipex-P] 37.5 mg PO DAILY 12/03/21 12/03/21 busPIRone HCL 5 mg PO BID 12/03/21 12/03/21 hydrALAZINE HCL [Apresoline] 25 mg PO TID 12/03/21 12/03/21 hydroCHLOROthiazide [Hydrodiuril] 25 mg PO DAILY 12/03/21 12/03/21 Previous Rx's Medication Instructions Recorded Ibuprofen [Motrin] 600 mg PO Q8HR PRN #30 tab 12/03/21 Allergies Allergy/AdvReac Type Severity Reaction Status Date / Time No Known Allergies Allergy Verified 12/03/21 13:56 Review of Systems ROS Statement: Those systems with pertinent positive or pertinent negative responses have been documented in the HPI. ROS Other: All systems not noted in ROS Statement are negative. Past Medical History Past Medical History: Hypertension, Thyroid Disorder Additional Past Medical History / Comment(s): headaches History of Any Multi-Drug Resistant Organisms: None Reported Past Surgical History: Cholecystectomy Past Anesthesia/Blood Transfusion Reactions: No Reported Reaction Past Psychological History: Anxiety, Bipolar, Depression Smoking Status: Never smoker Past Alcohol Use History: None Reported Past Drug Use History: None Reported - Past Family History Father History Unknown: Yes Family Medical History: Hypertension General Exam Limitations: no limitations General appearance: alert, in no apparent distress, other (This is a well- developed, well-nourished adult female in no acute distress.) Neck exam: Present: normal inspection, full ROM, other (Nontender, no step-off, no deformity to firm midline palpation of the posterior cervical spine. Full range of motion without pain or limitation.). Absent: tenderness, meningismus, lymphadenopathy Respiratory exam: Present: normal lung sounds bilaterally. Absent: respiratory distress, wheezes, rales, rhonchi, stridor Cardiovascular Exam: Present: regular rate, normal rhythm, normal heart sounds. Absent: systolic murmur, diastolic murmur, rubs, gallop, clicks Extremities exam: Present: full ROM, tenderness (Right lateral ankle tenderness), normal capillary refill, other (Soft tissue swelling noted to the right lateral ankle surrounding the right lateral malleolus. There is no fifth metatarsal tenderness. No proximal tib-fib tenderness. Skin otherwise pink, warm, dry. Cap refill less than 3 seconds. Pedal pulses 2+.). Absent: normal inspection, pedal edema, joint swelling, calf tenderness Back exam: Present: normal inspection. Absent: vertebral tenderness Neurological exam: Present: alert, oriented X3, CN II-XII intact Psychiatric exam: Present: normal affect, normal mood Skin exam: Present: warm, dry, intact, normal color. Absent: rash Course Vital Signs 12/03/21 12/03/21 12:23 14:18 Temperature 99.4 F 98.2 F Pulse Rate 88 78 Respiratory 16 16 Rate Blood Pressure 135/94 128/78 O2 Sat by Pulse 97 98 Oximetry Procedures - Orthopedic Splinting/Casting Injury #1 Side: right Lower Extremity Injury Location: short leg, ankle Lower Extremity Immobilizer: stirrup splint, Kamron wrap, synthetic pre-padded splint Medical Decision Making - Medical Decision Making 36-year-old female patient presented to the emergency department for evaluation of right ankle pain after slip and fall on the ice. Physical examination did reveal soft tissue swelling and ecchymosis surrounding the right lateral malleolus. Neurovascular status is intact. X-ray was obtained and did reveal a distal fibula fracture. She was placed in a stirrup splint she does have crutches with her. She'll be discharged to follow-up with orthopedics for further evaluation as soon as possible. Given pain medication. Educated regarding rest, ice, elevation. Return parameters were discussed in detail. She verbalizes understanding and agrees with this plan. My attending is Dr. Vanegas. - Radiology Data Radiology results: report reviewed, image reviewed 3 views of the right ankle are obtained. Report is reviewed in its entirety. Impression by Dr. Velasco shows oblique fracture distal fibula with minimal 1.5 mm of displacement. Disposition Clinical Impression: Closed fracture of right distal fibula Disposition: HOME SELF-CARE Condition: Good Instructions (If sedation given, give patient instructions): Leg Fracture (ED), Splint Care (ED) Additional Instructions: Rest, ice, elevate the ankle. Leave splint in place until follow-up with orthopedics. Remain nonweightbearing until cleared by without. Return for any new, worsening, or concerning symptoms. Prescriptions: Ibuprofen [Motrin] 600 mg PO Q8HR PRN #30 tab PRN Reason: Pain Is patient prescribed a controlled substance at d/c from ED?: No Referrals: Mk Coelho MD [Primary Care Provider] - 1-2 days Isabell Ruggiero DO [Doctor of Osteopathic Medicine] - 1-2 days Time of Disposition: 13:42
--- NOTE | 2021-12-03 13:27 | XR ---
EXAMINATION TYPE: XR ankle complete RT DATE OF EXAM: 12/03/2021 COMPARISON: NONE HISTORY: 36 year-old female right lateral ankle pain after slip and fall TECHNIQUE: 3 views FINDINGS: There is an oblique fracture of the distal fibula with minimal 1.5 mm of offset. Ankle mortise otherw ise congruent with preservation of the distal tibiofibular overlap. Underlying small ankle joint effu rubio. Talar dome is intact. Subtalar joint is likely. Smooth delineation to the Achilles tendon. IMPRESSION: Oblique fracture distal fibula with minimal 1.5 mm of displacement.
[2021-12-03] MEDS ORDERED: ACET/COD 300 MG/30 MG STARTER PACK 6 TAB BTL PO STA (13:42)
[2021-12-03 14:19] VITALS: BP 128/78; PULSE 78; TEMP 98.2
== END 2021-12-03 14:17 | disposition home or self-care (01) ==
LOC: EC 11:18
DX: S82.831A Other fracture of upper and lower end of right fibula, initial encounter for closed fracture (principal); I10 Essential (primary) hypertension; E07.9 Disorder of thyroid, unspecified; F41.9 Anxiety disorder, unspecified; F31.9 Bipolar disorder, unspecified; Z90.49 Acquired absence of other specified parts of digestive tract; W00.0XXA Fall on same level due to ice and snow, initial encounter
CPT/HCPCS: 99283; 96372; 29515; 73610; J1885

== ENCOUNTER 2022-05-11 08:53 | Emergency (ER) | payer MEDICAID, OTHER ==
[2022-05-11 09:22] VITALS: RESP 18; TEMP 98
[2022-05-11] MEDS ORDERED: KETOROLAC 15 MG/ML 1 ML VIAL IVP STA (09:49)
--- NOTE | 2022-05-11 09:55 | ED ---
Chest Pain HPI - General Chief Complaint: Chest Pain Stated Complaint: chest pain, high bp Time Seen by Provider: 05/11/22 09:27 Source: patient, RN notes reviewed Mode of arrival: ambulatory Limitations: no limitations - History of Present Illness Initial Comments: [id number] female history of hypertension who for the past couple days has intermittent episodes of upper mid chest pressure. Heaviness she describes it as 8/10 severity increases with deep breathing no change with movements no recent trauma he's had multiple episodes of this in the past she states she relates is sometimes to anxiety. He also noticed her blood pressure was running higher than normal over last 2 days. No fevers chills nausea vomiting sweats no cough or phlegm production no other complaints no increase in physical activity noted. MD Complaint: chest pain - Related Data Home Medications Medication Instructions Recorded Confirmed Cetirizine HCl [Zyrtec] 10 mg PO DAILY 12/03/21 12/03/21 Ergocalciferol [Vitamin D2 (1250 1,250 mcg PO Q30D 12/03/21 12/03/21 Mcg = 19761 Iu)] Escitalopram [Lexapro] 20 mg PO DAILY 12/03/21 12/03/21 LORazepam [Ativan] 1 mg PO BID PRN 12/03/21 12/03/21 Levothyroxine Sodium [Synthroid] 150 mcg PO DAILY 12/03/21 12/03/21 Losartan [Cozaar] 50 mg PO DAILY 12/03/21 12/03/21 Lurasidone HCl [Latuda] 60 mg PO DAILY 12/03/21 12/03/21 Phentermine HCl [Adipex-P] 37.5 mg PO DAILY 12/03/21 12/03/21 busPIRone HCL 5 mg PO BID 12/03/21 12/03/21 hydrALAZINE HCL [Apresoline] 25 mg PO TID 12/03/21 12/03/21 hydroCHLOROthiazide [Hydrodiuril] 25 mg PO DAILY 12/03/21 12/03/21 Previous Rx's Medication Instructions Recorded Ibuprofen [Motrin] 600 mg PO Q8HR PRN #30 tab 12/03/21 predniSONE [Deltasone] 20 mg PO BID #10 tab 05/11/22 Allergies Allergy/AdvReac Type Severity Reaction Status Date / Time No Known Allergies Allergy Verified 05/11/22 09:22 Review of Systems ROS Statement: Those systems with pertinent positive or pertinent negative responses have been documented in the HPI. ROS Other: All systems not noted in ROS Statement are negative. EKG Findings - EKG Results: EKG: interpreted by NATALIYA GREGORIO, sinus rhythm, normal axis, normal QRS, normal ST/T, no acute changes (Normal sinus rhythm 80 MO interval 154 QRS duration 88 QT since QTC 380/[address]-T wave changes) Past Medical History Past Medical History: Hypertension, Thyroid Disorder Additional Past Medical History / Comment(s): headaches History of Any Multi-Drug Resistant Organisms: None Reported Past Surgical History: Cholecystectomy Past Anesthesia/Blood Transfusion Reactions: No Reported Reaction Past Psychological History: Anxiety, Bipolar, Depression Smoking Status: Never smoker Past Alcohol Use History: Occasional Past Drug Use History: None Reported - Past Family History Father History Unknown: Yes Family Medical History: Hypertension General Exam - General Exam Comments Initial Comments: This is a well-developed well-nourished awake alert oriented 3 female Limitations: no limitations General appearance: alert, anxious Head exam: Present: atraumatic, normocephalic, normal inspection Eye exam: Present: normal appearance, PERRL, EOMI. Absent: scleral icterus, con junctival injection, periorbital swelling ENT exam: Present: mucous membranes dry (Surgery or bruits) Neck exam: Present: normal inspection, full ROM, other. Absent: tenderness, meningismus, lymphadenopathy Respiratory exam: Present: normal lung sounds bilaterally. Absent: respiratory distress, wheezes, rales, rhonchi, stridor Cardiovascular Exam: Present: regular rate, normal rhythm, normal heart sounds. Absent: systolic murmur, diastolic murmur, rubs, gallop, clicks GI/Abdominal exam: Present: soft, normal bowel sounds. Absent: distended, tenderness, guarding, rebound, rigid, bruit, pulsatile mass Extremities exam: Present: normal inspection, full ROM, normal capillary refill. Absent: tenderness, pedal edema, joint swelling, calf tenderness Back exam: Present: normal inspection Neurological exam: Present: alert, oriented X3, CN II-XII intact Psychiatric exam: Present: normal affect, normal mood Skin exam: Present: warm, dry, intact, normal color. Absent: rash Course Vital Signs 05/11/22 05/11/22 05/11/22 09:20 10:08 11:37 Temperature 98 F Pulse Rate 86 93 80 Pulse Rate [ 93 Radiologic Therapist ] Respiratory 18 18 18 Rate Blood Pressure 142/95 135/101 148/96 O2 Sat by Pulse 99 100 99 Oximetry 05/11/22 05/11/22 11:43 11:48 Temperature Pulse Rate 95 92 Pulse Rate [ Radiologic Therapist ] Respiratory 18 18 Rate Blood Pressure 143/96 146/89 O2 Sat by Pulse 95 95 Oximetry Chest Pain MDM - MDM Did reevaluate patient several occasions she did not get much if any relief from the Toradol she did receive nitroglycerin with no change. At this juncture the patient's presentation is more likely musculoskeletal costochondritic in nature does not appear to be cardiac oh vascular or pulmonary etiology. Patient will be discharged to follow-up with her doctor we did discuss and says which haven't helped her she had a headache during the weekend she stated today being Tuesday she will be tried on a short course of steroids. I did recommend she follow-up with her doctor in get a cardiac stress test Disposition Clinical Impression: Atypical chest pain, Chest wall syndrome Disposition: HOME SELF-CARE Condition: Good Instructions (If sedation given, give patient instructions): Costochondritis (ED) Prescriptions: predniSONE [Deltasone] 20 mg PO BID #10 tab Is patient prescribed a controlled substance at d/c from ED?: No Referrals: Mk Coelho MD [Primary Care Provider] - 1-2 days Decision Date: 05/11/22 Decision Time: 12:29
[2022-05-11 10:09] LABS: Basophils # (A) 0.1 k/uL (0-0.2); Basophils % (A) 1 %; Eosinophils # (A) 0.1 k/uL (0-0.7); Eosinophils % (A) 2 %; HCT 42.8 % (34.0-46.0); HGB 15.3 gm/dL (11.4-16.0); Lymphocytes # (A) 1.7 k/uL (1.0-4.8); Lymphocytes % (A) 30 %; MCH 31.9 pg (25.0-35.0); MCHC 35.7 g/dL (31.0-37.0); MCV 89.3 fL (80.0-100.0); Mean Platelet Volume 6.9; Monocytes # (A) 0.3 k/uL (0-1.0); Monocytes % (A) 5 %; Neutrophils # (A) 3.5 k/uL (1.3-7.7); Neutrophils % (A) 61 %; Platelet Count 195 k/uL (150-450); RBC 4.79 m/uL (3.80-5.40); RDW 11.8 % (11.5-15.5); WBC 5.8 k/uL (3.8-10.6)
[2022-05-11 10:23] LABS: ALT 20 U/L (4-34); AST 23 U/L (14-36); African American GFR (CKD) >90 (>60 ml/min/1.73 sqM); Albumin 4.3 g/dL (3.5-5.0); Alkaline Phosphatase 92 U/L (38-126); Anion Gap 8 mmol/L; Blood Urea Nitrogen 11 mg/dL (7-17); Calcium 9.1 mg/dL (8.4-10.2); Carbon Dioxide 30 mmol/L (22-30); Chloride 99 mmol/L (98-107); Glucose 106 mg/dL (74-99); Lipase 80 U/L (23-300); Magnesium 1.9 mg/dL (1.6-2.3); Non-African American GFR(CKD) >90 (>60 ml/min/1.73 sqM); Potassium 3.2 mmol/L (3.5-5.1); Sodium 137 mmol/L (137-145); Total Bilirubin 0.6 mg/dL (0.2-1.3); Total Protein 6.9 g/dL (6.3-8.2)
[2022-05-11 10:25] LABS: INR 0.9 (<1.2); Partial Thromboplastin Time 24.4 sec (22.0-30.0); Prothrombin Time 10.3 sec (9.0-12.0)
--- NOTE | 2022-05-11 10:40 | XR ---
EXAMINATION TYPE: XR chest 2V DATE OF EXAM: 05/11/2022 10:36 AM COMPARISON: Chest radiographs from 02/10/2017 TECHNIQUE: XR chest 2V Frontal and lateral views of the chest. CLINICAL INDICATION:Female, 37 years old with history of Chest Pain; FINDINGS: Lungs/Pleura: There is no evidence of pleural effusion, focal consolidation, or pneumothorax. Pulmonary vascularity: Unremarkable. Heart/mediastinum: Cardiomediastinal silhouette is unremarkable. Musculoskeletal: No acute osseous pathology. IMPRESSION: No acute cardiopulmonary disease/process.
[2022-05-11] MEDS: NITROGLYCERIN SL TABS 0.4 MG TAB SUBLINGUAL PRN ×3 (11:39→11:49)
[2022-05-11 11:48] VITALS: BP 146/89; PULSE 92
[2022-05-11] MEDS ORDERED: predniSONE 50 MG TAB PO STA (12:29)
== END 2022-05-11 12:44 | disposition home or self-care (01) ==
LOC: EC 08:53
DX: R07.89 Other chest pain (principal); R07.1 Chest pain on breathing; I10 Essential (primary) hypertension; F41.9 Anxiety disorder, unspecified; F31.9 Bipolar disorder, unspecified; Z72.89 Other problems related to lifestyle; Z79.899 Other long term (current) drug therapy
CPT/HCPCS: 36415; 85379; 80053; 83690; 83735; 84484; 85025; 85610; 85730; 81025; 71046; 99285; 96374; J1885

== ENCOUNTER → 2022-05-15 | Outpatient (CLI) | payer MEDICAID, OTHER ==
[2022-05-15 11:37] LABS: Follicle Stimulating Hormone 1.8 mIU/mL
== END | disposition home or self-care (01) ==
LOC: LABWHC1 08:18
PROVIDERS: ATTEND Pediatrics
DX: N94.6 Dysmenorrhea, unspecified (principal)
CPT/HCPCS: 36415; 82670; 83001; 83002; 84443

== ENCOUNTER → 2022-05-21 | Outpatient (CLI) | payer MEDICAID, OTHER ==
--- NOTE | 2022-05-29 02:26 | HM ---
HOLTER MONITOR REPORT This is a Holter. INDICATION: Palpitations. Underlying rhythm is sinus with an average heart rate of 101 beats per minute. Heart rate varies from 182 beats per minute to 57 beats per minute. Rare PVCs are noted. The patient had episodes of sinus tachycardia during physical exertion. CONCLUSION: This Holter reveals sinus rhythm with episodes of sinus tachycardia. MMODL / IJN: [id number] /
== END | disposition home or self-care (01) ==
LOC: RADECHMAIN 07:28
PROVIDERS: ATTEND Pediatrics
DX: R00.0 Tachycardia, unspecified (principal); R00.2 Palpitations
CPT/HCPCS: 93225; 93226

== ENCOUNTER → 2022-10-13 | Outpatient (CLI) | payer MEDICAID, OTHER | END | disposition home or self-care (01) | LOC: LABWHC1 07:12 | PROVIDERS: ATTEND Internal Medicine Endocrinology, Diabetes & Metabolism | DX: E03.8 Other specified hypothyroidism (principal); E55.9 Vitamin D deficiency, unspecified | CPT/HCPCS: 36415; 82306; 84443 ==

== ENCOUNTER → 2022-11-02 | Outpatient (CLI) | payer MEDICAID, OTHER ==
[2022-11-02 09:26] LABS: Basophils # (A) 0.1 k/uL (0-0.2); Basophils % (A) 1 %; Eosinophils % (A) 0 %; HCT 43.8 % (34.0-46.0); HGB 15.5 gm/dL (11.4-16.0); Hyperchromasia Slight; Lymphocytes # (A) 2.1 k/uL (1.0-4.8); Lymphocytes % (A) 29 %; MCHC 35.4 g/dL (31.0-37.0); MCV 90.4 fL (80.0-100.0); Mean Platelet Volume 6.9; Monocytes # (A) 0.4 k/uL (0-1.0); Monocytes % (A) 5 %; Neutrophils # (A) 4.7 k/uL (1.3-7.7); Neutrophils % (A) 64 %; Platelet Count 201 k/uL (150-450); RBC 4.85 m/uL (3.80-5.40); RDW 12.6 % (11.5-15.5); WBC 7.4 k/uL (3.8-10.6)
[2022-11-02 09:31] LABS: ALT 23 U/L (4-34); AST 20 U/L (14-36); African American GFR (CKD) >90 (>60 ml/min/1.73 sqM); Albumin 4.3 g/dL (3.5-5.0); Albumin/Globulin Ratio 1.6; Alkaline Phosphatase 84 U/L (38-126); Anion Gap 3 mmol/L; Blood Urea Nitrogen 11 mg/dL (7-17); Calcium 8.8 mg/dL (8.4-10.2); Carbon Dioxide 33 mmol/L (22-30); Chloride 103 mmol/L (98-107); Globulin 2.7 g/dL; Glucose 90 mg/dL (74-99); Non-African American GFR(CKD) >90 (>60 ml/min/1.73 sqM); Potassium 3.6 mmol/L (3.5-5.1); Sodium 139 mmol/L (137-145); Total Bilirubin 0.5 mg/dL (0.2-1.3)
[2022-11-02 19:49] LABS: Chol/HDL Ratio 3.44 Ratio; LDL Cholesterol,Calculated 109.1 mg/dL (0.0-131.0)
== END | disposition home or self-care (01) ==
LOC: LABWHC1 08:54
PROVIDERS: ATTEND Pediatrics
DX: Z00.00 Encounter for general adult medical examination without abnormal findings (principal); Z13.220 Encounter for screening for lipoid disorders; E03.9 Hypothyroidism, unspecified; E55.9 Vitamin D deficiency, unspecified
CPT/HCPCS: 36415; 80053; 80061; 82306; 84443; 85025

== ENCOUNTER → 2023-04-26 | Outpatient (CLI) | payer MEDICAID, OTHER | END | disposition home or self-care (01) | LOC: LABWHC1 06:53 | PROVIDERS: ATTEND Internal Medicine Endocrinology, Diabetes & Metabolism | DX: E03.8 Other specified hypothyroidism (principal) | CPT/HCPCS: 36415; 84443 ==

== ENCOUNTER 2023-07-29 20:31 | Emergency (ER) | payer MEDICAID, OTHER ==
[2023-07-29 21:02] VITALS: RESP 20; TEMP 98
[2023-07-29] MEDS ORDERED: diphenhydrAMINE 50 MG/ML 1 ML VIAL IVP STA (22:52)
[2023-07-29] MEDS ORDERED: PANTOPRAZOLE 40 MG/10 ML VIAL IVP STA (22:52)
[2023-07-29] MEDS ORDERED: METOCLOPRAMIDE 5 MG/ML 2 ML VIAL IVP STA (22:52)
[2023-07-29] MEDS ORDERED: SODIUM CHLORIDE 0.9% 2,000 ML IV STA (22:52)
[2023-07-29 23:13] LABS: Basophils % (A) 0 %; Eosinophils % (A) 0 %; HCT 45.2 % (34.0-46.0); HGB 16.5 gm/dL (11.4-16.0); Hyperchromasia Slight; Lymphocytes # (A) 2.5 k/uL (1.0-4.8); Lymphocytes % (A) 30 %; MCH 32.3 pg (25.0-35.0); MCHC 36.6 g/dL (31.0-37.0); MCV 88.2 fL (80.0-100.0); Mean Platelet Volume 6.8; Monocytes # (A) 0.4 k/uL (0-1.0); Monocytes % (A) 5 %; Neutrophils # (A) 5.3 k/uL (1.3-7.7); Neutrophils % (A) 64 %; Platelet Count 235 k/uL (150-450); RBC 5.12 m/uL (3.80-5.40); RDW 11.9 % (11.5-15.5); WBC 8.3 k/uL (3.8-10.6)
[2023-07-29 23:20] LABS: Appearance,Urine Cloudy (Clear); Bacteria,Urine Occasional /hpf; Bilirubin,Urine 1+ (Negative); Blood,Urine Large (Negative); Color,Urine Yellow; Glucose,Urine (UA) Negative (Negative); Ketones,Urine 3+ (Negative); Leukocyte Esterase,Urine Moderate (Negative); Mucus,Urine Many /hpf; Nitrite,Urine Negative (Negative); Protein,Urine 1+ (Negative); RBC,Urine 2 /hpf (0-5); Specific Gravity,Urine 1.029 (1.001-1.035); Squamous Epithelial Cell,Urine 4 /hpf (0-4); WBC,Urine 3 /hpf (0-5)
[2023-07-29 23:27] LABS: ALT 32 U/L (4-34); AST 28 U/L (14-36); African American GFR (CKD) >90 (>60 ml/min/1.73 sqM); Albumin 4.8 g/dL (3.5-5.0); Alkaline Phosphatase 100 U/L (38-126); Amylase 61 U/L (30-110); Anion Gap 14 mmol/L; Blood Urea Nitrogen 20 mg/dL (7-17); Calcium 9.4 mg/dL (8.4-10.2); Carbon Dioxide 25 mmol/L (22-30); Chloride 100 mmol/L (98-107); Glucose 81 mg/dL (74-99); Lipase 76 U/L (23-300); Non-African American GFR(CKD) >90 (>60 ml/min/1.73 sqM); Potassium 3.3 mmol/L (3.5-5.1); Sodium 139 mmol/L (137-145); Total Bilirubin 0.9 mg/dL (0.2-1.3); Total Protein 7.6 g/dL (6.3-8.2)
[2023-07-30] MEDS ORDERED: CEPHALEXIN 500 MG CAP PO STA (00:19)
[2023-07-30] MEDS ORDERED: ONDANSETRON 4 MG ODT STARTER PACK 2 TAB BTL PO STA (00:20)
--- NOTE | 2023-07-30 00:22 | ED ---
General Adult HPI - General Chief complaint: Nausea/Vomiting/Diarrhea Stated complaint: Vomiting, Reaction Medication Time Seen by Provider: 07/29/23 22:33 Source: patient, RN notes reviewed, old records reviewed Mode of arrival: ambulatory Limitations: no limitations - History of Present Illness Initial comments: Patient is a 38-year-old female with past medical history remarkable for hypertension, thyroid disorder who presents emergency Department complaining of 2 days of nausea and vomiting. Abdominal pain only when throwing up. Emesis is nonbilious nonbloody. No fevers, chest pain, shortness of breath. No diarrhea, constipation. No urinary complaints at this time. Presence of further evaluation at this time. Unknown if it is from her recent medication that she started. - Related Data Home Medications Medication Instructions Recorded Confirmed Cetirizine HCl [Zyrtec] 10 mg PO DAILY 12/03/21 12/03/21 Ergocalciferol [Vitamin D2 (1250 1,250 mcg PO Q30D 12/03/21 12/03/21 Mcg = 34772 Iu)] Escitalopram [Lexapro] 20 mg PO DAILY 12/03/21 12/03/21 LORazepam [Ativan] 1 mg PO BID PRN 12/03/21 12/03/21 Levothyroxine Sodium [Synthroid] 150 mcg PO DAILY 12/03/21 12/03/21 Losartan [Cozaar] 50 mg PO DAILY 12/03/21 12/03/21 Lurasidone [Latuda] 60 mg PO DAILY 12/03/21 12/03/21 Phentermine HCl [Adipex-P] 37.5 mg PO DAILY 12/03/21 12/03/21 busPIRone HCL 5 mg PO BID 12/03/21 12/03/21 hydrALAZINE HCL [Apresoline] 25 mg PO TID 12/03/21 12/03/21 hydroCHLOROthiazide [Hydrodiuril] 25 mg PO DAILY 12/03/21 12/03/21 Previous Rx's Medication Instructions Recorded Ibuprofen [Motrin] 600 mg PO Q8HR PRN #30 tab 12/03/21 predniSONE [Deltasone] 20 mg PO BID #10 tab 05/11/22 Cephalexin [Keflex] 500 mg PO Q12HR 5 Days #10 cap 07/30/23 Allergies Allergy/AdvReac Type Severity Reaction Status Date / Time No Known Allergies Allergy Verified 07/29/23 20:55 Review of Systems ROS Statement: Those systems with pertinent positive or pertinent negative responses have been documented in the HPI. Review of Systems: CONST: Denies fever EYES: Denies blurry vision ENT: Denies nasal congestion C/V: Denies Chest pain RESP: Denies shortness of breath GI: Endorses nausea and vomiting : Denies dysuria SKIN: Denies rash. MSK: Denies joint pain. NEURO: Denies headache ROS Other: All systems not noted in ROS Statement are negative. Past Medical History Past Medical History: Hypertension, Thyroid Disorder Additional Past Medical History / Comment(s): headaches History of Any Multi-Drug Resistant Organisms: None Reported Past Surgical History: Ablation, Cholecystectomy Past Anesthesia/Blood Transfusion Reactions: No Reported Reaction Past Psychological History: Anxiety, Bipolar, Depression Smoking Status: Never smoker Past Alcohol Use History: Occasional Past Drug Use History: None Reported - Past Family History Father History Unknown: Yes Family Medical History: Hypertension General Exam - General Exam Comments Initial Comments: General: Appears in no acute distress. HEAD: Normal with no signs of head trauma. EYES: PERRLA, EOMI, conjunctiva normal, no discharge. ENT: Hearing grossly intact, normal oropharynx. RESPIRATORY: Clear breath sounds bilaterally. No wheezes, rales, or rhonchi. C/V: Regular rate and rhythm. S1 and S2 auscultated, no edema, peripheral pulses 2+ and intact throughout ABD: Abd is soft, nontender, nondistended EXT: Normal range of motion, no obvious deformity SKIN: No rashes or lesions observed on exposed skin. NEURO: Alert and oriented 4. Limitations: no limitations Course Vital Signs 07/29/23 07/29/23 20:52 23:28 Temperature 98.0 F Pulse Rate 76 71 Respiratory 20 Rate Blood Pressure 140/101 137/80 O2 Sat by Pulse 98 Oximetry Medical Decision Making - Medical Decision Making Was pt. sent in by a medical professional or institution (, PA, LADIES UNDERWEAR OPERATOR, urgent care, hospital, or senior living...) When possible be specific @ -No Did you speak to anyone other than the patient for history (EMS, parent, family, police, friend...)? What history was obtained from this source @ -No Did you review nursing and triage notes (agree or disagree)? Why? @ -I reviewed and agree with nursing and triage notes Were old charts reviewed (outside hosp., previous admission, EMS record, old EKG, old radiological studies, urgent care reports/EKG's, senior living records)? Report findings @ -No old charts were reviewed Differential Diagnosis (chest pain, altered mental status, abdominal pain women, abdominal pain men, vaginal bleeding, weakness, fever, dyspnea, syncope, he adache, dizziness, GI bleed, back pain, seizure, CVA, palpatations, mental health, musculoskeletal)? @ -Nausea, vomiting, dehydration, UTI, AKA. This list is not all inclusive. EKG interpreted by me (3pts min.). @ -None done X-rays interpreted by me (1pt min.). @ -None done CT interpreted by me (1pt min.). @ -None done U/S interpreted by me (1pt. min.). @ -None done What testing was considered but not performed or refused? (CT, X-rays, U/S, labs)? Why? @ -None What meds were considered but not given or refused? Why? @ -None Did you discuss the management of the patient with other professionals (professionals i.e. DrJessica, PA, LADIES UNDERWEAR OPERATOR, lab, RT, psych nurse, social studies teacher, director of enterprise strategy, teacher, veterinary medical officer, pillowcase folder)? Give summary @ -No Was smoking cessation discussed for >3mins.? @ -No Was critical care preformed (if so, how long)? @ -No Were there social determinants of health that impacted care today? How? (Benny elessness, low income, unemployed, alcoholism, drug addiction, transportation, low edu. Level, literacy, decrease access to med. care, long-term, rehab)? @ -No Was there de-escalation of care discussed even if they declined (Discuss DNR or withdrawal of care, Hospice)? DNR status @ -No What co-morbidities impacted this encounter? (DM, HTN, Smoking, COPD, CAD, Cancer, CVA, ARF, Chemo, Hep., AIDS, mental health diagnosis, sleep apnea, morbid obesity)? @ -None Was patient admitted / discharged? Hospital course, mention meds given and route, prescriptions, significant lab abnormalities, going to OR and other pertinent info. @ -Based on the patient's presentation and physical exam, I'm concerned for her nausea and vomiting. We will obtain abdominal laboratory studies. She'll be symptomatically treated with 2 L fluid bolus, IV Protonix, Reglan, Benadryl. She was in agreement this plan. Vital signs within acceptable limits. Laboratory studies remarkable for mild dehydration. Urinalysis concerning for dehydration as well as UTI. She is not . I discussed results with the patient. She is feeling improved. She is tolerating oral intake. She'll be discharged home at this time. She'll be sent out for UTI. She was in agreement this plan. Strict return precautions discussed. I will provide the patient with a prescription for Keflex. I instructed the patient to follow up with their PCP in the next 1-3 days. I explained that the patient should return to the emergency department if they experience any worsening symptoms. Strict return precautions were discussed with the patient. The patient expressed understanding of these instructions. I answered all questions that the patient had. The patient was discharged home in good condition with their prescriptions and follow up information. Undiagnosed new problem with uncertain prognosis? @ -No Drug Therapy requiring intensive monitoring for toxicity (Heparin, Nitro, Insulin, Cardizem)? @ -No Were any procedures done? @ -No Diagnosis/symptom? @ -Nausea and vomiting, UTI Acute, or Chronic, or Acute on Chronic? @ -Acute Uncomplicated (without systemic symptoms) or Complicated (systemic symptoms)? @ -Complicated Side effects of treatment? @ -No Exacerbation, Progression, or Severe Exacerbation? @ -No Poses a threat to life or bodily function? How? (Chest pain, [place], AR, pneumonia, PE, COPD, DKA, ARF, appy, cholecystitis, CVA, Diverticulitis, Homicidal, Suicidal, threat to staff... and all critical care pts) @ -No - Lab Data Result diagrams: 07/29/23 22:55 07/29/23 22:55 Lab Results 07/29/23 07/29/23 07/29/23 Range/Units 22:55 22:55 22:55 WBC 8.3 (3.8-10.6) k/uL RBC 5.12 (3.80-5.40) m/uL Hgb 16.5 H (11.4-16.0) gm/dL Hct 45.2 (34.0-46.0) % MCV 88.2 (80.0-100.0) fL MCH 32.3 (25.0-35.0) pg MCHC 36.6 (31.0-37.0) g/dL RDW 11.9 (11.5-15.5) % Plt Count 235 (150-450) k/uL MPV 6.8 Neutrophils % 64 % Lymphocytes % 30 % Monocytes % 5 % Eosinophils % 0 % Basophils % 0 % Neutrophils # 5.3 (1.3-7.7) k/uL Lymphocytes # 2.5 (1.0-4.8) k/uL Monocytes # 0.4 (0-1.0) k/uL Eosinophils # 0.0 (0-0.7) k/uL Basophils # 0.0 (0-0.2) k/uL Hyperchromasia Slight Sodium (137-145) mmol/L Potassium (3.5-5.1) mmol/L Chloride (98-107) mmol/L Carbon Dioxide (22-30) mmol/L Anion Gap mmol/L BUN (7-17) mg/dL Creatinine (0.52-1.04) mg/dL Est GFR (CKD-EPI)AfAm (>60 ml/min/1.73 sqM) Est GFR (CKD-EPI)NonAf (>60 ml/min/1.73 sqM) Glucose (74-99) mg/dL Calcium (8.4-10.2) mg/dL Total Bilirubin (0.2-1.3) mg/dL AST (14-36) U/L ALT (4-34) U/L Alkaline Phosphatase (38-126) U/L Total Protein (6.3-8.2) g/dL Albumin (3.5-5.0) g/dL Amylase (30-110) U/L Lipase (23-300) U/L Urine Color Yellow Urine Appearance Cloudy H (Clear) Urine pH 7.0 (5.0-8.0) Ur Specific [place] 1.029 (1.001-1.035) Urine Protein 1+ H (Negative) Urine Glucose (UA) Negative (Negative) Urine Ketones 3+ H (Negative) Urine Blood Large H (Negative) Urine Nitrite Negative (Negative) Urine Bilirubin 1+ H (Negative) Urine Urobilinogen 2.0 (<2.0) mg/dL Ur Leukocyte Esterase Moderate H (Negative) Urine RBC 2 (0-5) /hpf Urine WBC 3 (0-5) /hpf Ur Squamous Epith Cells 4 (0-4) /hpf Urine Bacteria Occasional H (None) /hpf Urine Mucus Many H (None) /hpf Urine HCG, Qual Not Detected (Not Detectd) 07/29/23 Range/Units 22:55 WBC (3.8-10.6) k/uL RBC (3.80-5.40) m/uL Hgb (11.4-16.0) gm/dL Hct (34.0-46.0) % MCV (80.0-100.0) fL MCH (25.0-35.0) pg MCHC (31.0-37.0) g/dL RDW (11.5-15.5) % Plt Count (150-450) k/uL MPV Neutrophils % % Lymphocytes % % Monocytes % % Eosinophils % % Basophils % % Neutrophils # (1.3-7.7) k/uL Lymphocytes # (1.0-4.8) k/uL Monocytes # (0-1.0) k/uL Eosinophils # (0-0.7) k/uL Basophils # (0-0.2) k/uL Hyperchromasia Sodium 139 (137-145) mmol/L Potassium 3.3 L (3.5-5.1) mmol/L Chloride 100 (98-107) mmol/L Carbon Dioxide 25 (22-30) mmol/L Anion Gap 14 mmol/L BUN 20 H (7-17) mg/dL Creatinine 0.73 (0.52-1.04) mg/dL Est GFR (CKD-EPI)AfAm >90 (>60 ml/min/1.73 sqM) Est GFR (CKD-EPI)NonAf >90 (>60 ml/min/1.73 sqM) Glucose 81 (74-99) mg/dL Calcium 9.4 (8.4-10.2) mg/dL Total Bilirubin 0.9 (0.2-1.3) mg/dL AST 28 (14-36) U/L ALT 32 (4-34) U/L Alkaline Phosphatase 100 (38-126) U/L Total Protein 7.6 (6.3-8.2) g/dL Albumin 4.8 (3.5-5.0) g/dL Amylase 61 (30-110) U/L Lipase 76 (23-300) U/L Urine Color Urine Appearance (Clear) Urine pH (5.0-8.0) Ur Specific [place] (1.001-1.035) Urine Protein (Negative) Urine Glucose (UA) (Negative) Urine Ketones (Negative) Urine Blood (Negative) Urine Nitrite (Negative) Urine Bilirubin (Negative) Urine Urobilinogen (<2.0) mg/dL Ur Leukocyte Esterase (Negative) Urine RBC (0-5) /hpf Urine WBC (0-5) /hpf Ur Squamous Epith Cells (0-4) /hpf Urine Bacteria (None) /hpf Urine Mucus (None) /hpf Urine HCG, Qual (Not Detectd) Disposition Clinical Impression: UTI (urinary tract infection), Nausea and vomiting Disposition: HOME SELF-CARE Condition: Good Instructions (If sedation given, give patient instructions): Urinary Tract Infection in Women (ED), Acute Nausea and Vomiting (ED) Prescriptions: Cephalexin [Keflex] 500 mg PO Q12HR 5 Days #10 cap Is patient prescribed a controlled substance at d/c from ED?: No Referrals: Mk Coelho MD [Primary Care Provider] - 1-2 days Time of Disposition: 00:01
[2023-07-30 01:11] VITALS: BP 137/80; PULSE 71
== END 2023-07-30 00:54 | disposition home or self-care (01) ==
LOC: EC 20:31
DX: N39.0 Urinary tract infection, site not specified (principal); E86.0 Dehydration; I10 Essential (primary) hypertension; E07.9 Disorder of thyroid, unspecified; F31.9 Bipolar disorder, unspecified; F41.9 Anxiety disorder, unspecified; Z79.890 Hormone replacement therapy; Z79.899 Other long term (current) drug therapy; Z90.49 Acquired absence of other specified parts of digestive tract
CPT/HCPCS: 36415; 93005; 80053; 82150; 83690; 85025; 81001; 81025; 99284; 96374; 96375 ×2; 96361 ×2; J1200; J2765; C9113; 87086

== ENCOUNTER → 2023-09-09 | Outpatient (CLI) | payer MEDICAID, OTHER | END | disposition home or self-care (01) | LOC: LABWHC1 13:00 | PROVIDERS: ATTEND Internal Medicine Endocrinology, Diabetes & Metabolism | DX: E03.8 Other specified hypothyroidism (principal); E55.9 Vitamin D deficiency, unspecified | CPT/HCPCS: 36415; 82306; 84443 ==

== ENCOUNTER → 2023-11-14 | Outpatient (CLI) | payer MEDICAID, OTHER ==
[2023-11-14 11:59] LABS: Basophils # (A) 0.02 X 10*3/uL (0.00-0.10); Basophils % (A) 0.3 %; Eosinophils # (A) 0 X 10*3/uL (0.04-0.35); Eosinophils % (A) 0 %; HCT 43.4 % (37.2-46.3); HGB 15.7 g/dL (12.0-15.0); Lymphocytes # (A) 2.42 X 10*3/uL (0.90-5.00); Lymphocytes % (A) 31.1 %; MCH 31.5 pg (27.0-32.0); MCHC 36.2 g/dL (32.0-37.0); Mean Platelet Volume 8.6 FL (9.5-12.2); Monocytes # (A) 0.54 X 10*3/uL (0.20-1.00); Monocytes % (A) 6.9 %; NRBC Per 100 WBC 0 X 10*3/uL (0.00-0.01); Neutrophils # (A) 4.78 X 10*3/uL (1.80-7.70); Neutrophils % (A) 61.3 %; Platelet Count 191 X 10*3/uL (140-440); RBC 4.99 X 10*6/uL (4.10-5.20); RDW 11.9 % (11.5-14.5); WBC 7.79 X 10*3/uL (4.50-10.00)
[2023-11-14 12:27] LABS: Chol/HDL Ratio 3.38 Ratio; VLDL Calculation 18.44 mg/dL (5.00-40.00)
[2023-11-14 12:28] LABS: ALT 22 U/L (8-44); AST 12 U/L (13-35); Albumin 4.4 g/dL (3.8-4.9); Albumin/Globulin Ratio 1.91 Ratio (1.60-3.17); Alkaline Phosphatase 113 U/L (41-126); BUN/Creat Ratio 15.14 Ratio (12.00-20.00); Blood Urea Nitrogen 10.6 mg/dL (9.0-27.0); Calcium 9.4 mg/dL (8.7-10.3); Carbon Dioxide 26.9 mmol/L (21.6-31.8); Chloride 102 mmol/L (96-109); Globulin 2.3 g/dL (1.6-3.3); Glucose 87 mg/dL (70-110); Potassium 3.8 mmol/L (3.5-5.5); Sodium 140 mmol/L (135-145); Total Bilirubin 0.6 mg/dL (0.3-1.2); Total Protein 6.7 g/dL (6.2-8.2)
== END | disposition home or self-care (01) ==
LOC: LABWHC1 08:50
PROVIDERS: ATTEND Pediatrics
DX: Z00.00 Encounter for general adult medical examination without abnormal findings (principal); Z13.220 Encounter for screening for lipoid disorders; E55.9 Vitamin D deficiency, unspecified; E03.9 Hypothyroidism, unspecified
CPT/HCPCS: 36415; 80053; 80061; 82306; 84443; 85025

== ENCOUNTER → 2023-12-21 | Outpatient (CLI) | payer BC, OTHER ==
[2023-12-21 12:00] LABS: Rheumatoid Factor, Qnt <15 IU/mL (0-15)
== END | disposition home or self-care (01) ==
LOC: LABWHC1 08:03
PROVIDERS: ATTEND Internal Medicine Endocrinology, Diabetes & Metabolism
DX: E03.8 Other specified hypothyroidism (principal); M25.50 Pain in unspecified joint
CPT/HCPCS: 36415; 84443; 85652; 86038; 86431